=== PATIENT | female | born 1970 | race Caucasian/White ===

== ENCOUNTER → 2017-04-01 | Outpatient (CLI) | payer BC ==
[~2017-04-01] MED LIST: GADOBUTROL 10 ML VIAL IVP ONE
== END ==
LOC: FIMAGING 10:30
PROVIDERS: ATTEND Internal Medicine
DX: Z12.39 Encounter for other screening for malignant neoplasm of breast (principal); N60.11 Diffuse cystic mastopathy of right breast; I86.2 Pelvic varices; Z80.3 Family history of malignant neoplasm of breast
CPT/HCPCS: 0159T; 76856; 77059; A9585; C8908